=== PATIENT | male | born 1975 | race Asian ===

== ENCOUNTER 2019-10-14 10:35 | Outpatient (CLI) | payer OTHER ==
--- NOTE | 2019-10-14 11:34 | SLEEP CARE CONSULTATION ---
Information from patient questionnaire entered by Giulia Rolon. I have reviewed and concur with the information entered by Giuila Rolon. This document represents the service I personally performed and the decisions made by me, Pallavi Garcia ARNP. History of Present Illness Service Date and Time: 10/14/2019 1035 Reason for Visit: New patient Chief Complaint: reports: Unrefreshed sleep, Snoring, Observed pauses in breathing, Fatigue, Other (headaches) Duration of Symptoms: 5 years Usual bedtime: 2100 Time it takes to fall asleep: 30 minutes Snores at night: Yes Observed to quit breathing while asleep: Yes Sleeps alone due to snoring: No (sometimes) Number of times waking at night: 3-4 Reasons for waking at night: reports: Snoring, Bathroom Toss, Turn, or Twitch while sleeping: Yes (toss and turn) Recalls having dreams: Yes Usually gets out of bed at: 0630 Feels refreshed in the morning: No Morning headache: Yes Sleepy or fatigued during the day: Yes Ever fallen asleep while driving: Yes Takes day naps: Yes Dreams during day naps: No Prior sleep studies: No Additional HPI information: Patient did try to have study done before but was unable to finish process and get sleep study due to transfer. He has had his and other bunk mates tell him he snores loudly, gasps in his sleep and stops breathing occasionally when sleeping. He complains today of unrestful sleep despite sleeping 8+ hours nightly, gets up 2-3 times a night and has difficulty with restless leg movements when trying to fall asleep or when sitting in his recliner. He also reports getting headaches when he does not sleep well that resolve in 1-2 hours in the morning usually. - Parasomnia Symptoms Ever been unable to move upon waking from sleep: No Walks in sleep: No Talks in sleep: Yes Ever acted out dreams in sleep: Yes Ever felt weak in the knees when startled or emotional: Yes Bothered by creepy, crawly, restless sensations in legs: Yes (always moving legs in bed or in recliner) Problems with memory or concentration: Yes (hard to remember what he was doing, take second to remember) Subjective Initial [place] Sleepiness Scale score: 18 Past Medical History Past Medical History: reports: Hypertension. denies: Congestive Heart Failure, Diabetes, Stroke, Coronary Heart Disease, Gout, Arrythmia, Anemia, Anxiety, Impotence, Asthma, Depression, Mood disorder, GERD Social History The patient's occupation is active . Patient is and lives in [place]. Have you smoked in the past 12 months: No Alcohol use: No Caffeine use: Yes Caffeine amount and frequency: 1 coffee/day Family History Family history of sleep disordered breathing: Yes Family Hx Sleep Apnea: Father: Snoring, Sibling: Snoring Allergies and Home Medications Drug allergies reviewed: Yes (NKDA) Home medication list reviewed: Yes (none, OTC Advil as needed) Review of Systems Cardiovascular: reports: high blood pressure. denies: palpitations, chest pain, irregular heart rate or pulse, leg or foot swelling, have to sleep sitting up Respiratory: denies: shortness of breath, wheeze, chronic cough Gastrointestinal: denies: heartburn, difficulty swallowing, abdominal pain Urinary: denies: incontinence, frequency, urgency, impotence, other Neurological: reports: headaches (wake up throbbing PATTERSON, last 1-2 hours). denies: head trauma, disorientation, speech dysfunction, gait or balance problems Psychiatric: denies: Attention Deficit Hyperactivity, anxiety, depression, mood disorder Ear/Nose/Throat: reports: nasal congestion, dry mouth/throat (mouth and throat in mornings, resolves with water intake), wisdom teeth removed. denies: sinus problems, nose bleeds, hoarseness, injury to nose, tonsillectomy Endocrine: denies: thyroid disease, history of goiter, sluggishness, too hot or cold, excessive thirst, increased appetite, increased urination, unexplained weakness Musculoskeletal: reports: neck pain, back pain. denies: joint pain, joint swelling, muscle pain or cramping Immunologic: reports: allergies to food or environment (*environment, seasonal). denies: sneezing, rash, itching Physical Exam Heart Rate: 83 O2 Saturation: 98 Height: 5 ft 9 in Weight: 220 lb Body Mass Index: 32.5 BMI Classification: Obese Neck circumference: 18 (inches) Nasal exam: negative: erythema, excoriation, scabs, blood tinged nasal secretions, other HEENT: No craniofacial malformation Nostrils: patent to airflow Turbinates: normal Septum: midline Mouth and throat: normal Soft palate: normal Hard palate: normal Uvula: long Uvula visualization: 50% Mallampati Class II Tongue: normal in size Tonsils: 1+ Chin and jaw: normal size and position Neck: normal w/o lymphadenopathy or thyromegaly Heart: regular rate and rhythm Lungs: clear bilaterally Impression and Plan 1. Suspected Obstructive Sleep Apnea-Hypopnea Syndrome, as suggested by a history of loud and irregular snoring, observed cessation of breath while asleep by multiple people, gasping in sleep, morning headache, frequent awakening during the night, unrefreshed sleep, cognitive impairment, and excessive daytime sleepiness. Obesity are common predisposing factors for obstructive sleep apnea- hypopnea syndrome. I recommend proceeding to polysomnography to confirm the diagnosis and to assess severity. If the patient has significant sleep disordered breathing, a manual CPAP titration study will also be performed to find the optimal treatment pressure. I informed the patient of what the sleep studies involve and after some discussion, obtained agreement to proceed. The pathophysiology of obstructive sleep apnea-hypopnea syndrome was discussed with the patient and health risks of cardiovascular and cerebrovascular disease if not treated. AASM brochure for obstructive sleep apnea-hypopnea syndrome given and reviewed. 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 Patient agreed to plan. * Schedule polysomnography and return in 1-2 weeks after the study to discuss result and initiate therapy. * Avoid long distance driving or driving when feeling sleepy. * Avoid alcohol, sedative and muscle relaxant around bedtime. * Attempt to lose weight. * Review instructions provided by trained office staff on how to prepare for the sleep study. * Return for follow-up after sleep study completed. Visit Type: In Office Time Spent with Patient (minutes): 30 Provider Statement: I spent 100% of the Face to Face Visit with the patient with greater than 50% spent counseling the patient and coordination of care.
== END 2019-10-14 10:36 | disposition home or self-care (01) ==
LOC: SC 10:35
PROVIDERS: ATTEND Nurse Practitioner Family
DX: R06.83 Snoring (principal); R06.81 Apnea, not elsewhere classified; R51 Headache; G47.8 Other sleep disorders; R41.89 Other symptoms and signs involving cognitive functions and awareness; G47.10 Hypersomnia, unspecified; E66.9 Obesity, unspecified; Z68.32 Body mass index [BMI] 32.0-32.9, adult
CPT/HCPCS: 99204; 99212

== ENCOUNTER 2019-11-13 14:48 | Outpatient (CLI) | payer OTHER ==
--- NOTE | 2019-11-13 15:20 | SLEEP CARE CONSULTATION ---
Information from patient questionnaire entered by Naina Carter. I have reviewed and concur with the information entered by Naina Carter. This document represents the service I personally performed and the decisions made by , Pallavi Garcia ARNP. History of Present Illness Service Date and Time: 11/13/2019 1448 Initial [place] Sleepiness Scale score: 18 (in 2020) Current [place] Sleepiness Scale score: 18 Additional HPI information: MINOR DUGGAN returns for follow up and results of the recently performed polysomnography. I explained the pathophysiology behind obstructive sleep apnea. We then spent quite a bit of time discussing different treatment options. For mild obstructive sleep apnea, surgery and oral appliance are alternatives to nasal CPAP therapy but in moderate or severe cases, nasal CPAP is the most effective and reliable treatment. Because apnea is primarily in supine position, then positional management therapy could be effective. Methods discussed such as positioning with pillows, using a T-shirt with tennis balls in the back, and shown commercial products that have a pillow format on back to prevent supine sleep. I reviewed the impact of weight changes on sleep apnea and strongly recommended losing weight. After some discussion, the patient opted to go with the nasal CPAP therapy. Nasal autoCPAP set at [id number] will be ordered with rationale explained. A manual titration study will be ordered if unable to find optimal pressure with office adjustments. I explained how CPAP machine works with sample devices [employer]pir[employer]ulexs Dreamstation and [employer] [id number] and what to expect when using the machine. Using CPAP every night in order to get used to it was emphasized. Patient advised to put CPAP mask on before getting into bed so as not to fall asleep without CPAP. To assist acclimation to CPAP use, it could also be used for a short time during day while reading or watching TV. The patient was instructed to call the CPAP supplier to discuss any mechanical problem that may occur. If the mask given is uncomfortable or is difficult to keep on through the night even with adjustment, contact the CPAP supplier as many will replace with another mask style if notified before 30 days. If snoring or perceives is not getting enough air or too much air from the machine, notify this office. [facility] patient education PAP tips reviewed and given to patient. Patient counseled not drink alcohol less than 4 hours before bedtime as it can increase snoring and apnea. Patient was cautioned about risks of drowsy driving until sleepiness symptoms resolve. Sleep Study - Results Type of Sleep Study: Polysomnography Polysomnography/Home Sleep Study results: IMPRESSION: The quality of the study is good. The patient had slightly reduced sleep efficiency due to a prolonged awakening in the middle of the night. The sleep architecture was abnormal for sleep fragmentation and reduced amount of time spent in REM and slow wave sleep (N3). Respiratory monitoring showed severe obstructive sleep apnea-hypopnea (AHI = 45.8) associated with frequent arousals, oxyhemoglobin desaturation and moderate hypoxia (billie oxygen saturation of 69%). Baseline oxygen saturation was normal. The respiratory events occurred more frequently during supine sleep (supine AHI = 78.5; non-supine = 25.16). Snore was loud in intensity. There was no significant periodic leg movement of sleep. Cardiac rhythm was normal sinus rhythm without significant arrhythmia. No abnormal behavior (parasomnia) observed during the night. Allergies and Home Medications Drug allergies reviewed: Yes (NKDA) Home medication list reviewed: Yes (no changes) Review of Systems Review of systems same as previous: Yes (no changes) Physical Exam Heart Rate: 83 O2 Saturation: 98 Height: 5 ft 9 in Weight: 225 lb 6.4 oz Body Mass Index: 33.3 BMI Classification: Obese Impression and Plan 1. Obstructive Sleep Apnea-Hypopnea Syndrome, 45.8, with lowest oxygen saturation of 69%, is supine AHI was 78.5 and non-supine was 25.16. Obviously this is the cause of the patients symptoms of unrefreshed sleep, and excessive daytime sleepiness. Positive pressure therapy could benefit hypertension. As mentioned above, the patient will be started on nasal autoCPAP therapy with pressure set at 4-15 cmH2O. A manual titration study will be completed if unable to find optimal treatment pressure with office adjustments. Compliance guidelines also reviewed. A copy of compliance guidelines will be given for reference at check out. Because the apnea is more severe supine, I instructed to avoid sleeping supine using pillow positioning until able to start CPAP use. Nasal autoCPAP therapy, pressure at 4-15 cm H2O. Attempt to lose weight. Avoid alcohol consumption near bedtime. Avoid supine sleep until using CPAP. The patient is again cautioned about driving until sleepiness completely resolves on CPAP therapy. Return one month after CPAP obtained. I will assess response to therapy and compliance at that time. Visit Type: In Office Time Spent with Patient (minutes): 19 Provider Statement: I spent 100% of the Face to Face Visit with the patient with greater than 50% spent counseling the patient and coordination of care.
== END 2019-11-13 14:49 | disposition home or self-care (01) ==
LOC: SC 14:48
PROVIDERS: ATTEND Nurse Practitioner Family
DX: G47.33 Obstructive sleep apnea (adult) (pediatric) (principal); E66.9 Obesity, unspecified; Z68.33 Body mass index [BMI] 33.0-33.9, adult
CPT/HCPCS: 99212; 99213

== ENCOUNTER 2020-01-06 09:44 | Outpatient (CLI) | payer OTHER ==
--- NOTE | 2020-01-06 10:20 | SLEEP CARE CONSULTATION ---
Information from patient questionnaire entered by Naina Carter. I have reviewed and concur with the information entered by Naina Carter. This document represents the service I personally performed and the decisions made by , Pallavi Garcia ARNP. History of Present Illness Service Date and Time: 01/06/2020 0944 Previous diagnosis: Severe, Obstructive Sleep Apnea-Hypopnea Syndrome AHI: 45.8 (in 2019) Reason for follow up: first compliance Equipment type: CPAP Equipment obtained from: [facility] (not supplies yet, encouraged to reach out to them) Mask style: Full face Backup mask available: Yes (second mask) Last cushion change: no change yet Prior sleep studies: Yes Year and Where: 2019 - [facility] Type of Sleep Study: Polysomnography HPI additional information: MINOR DUGGAN was diagnosed to have mild, AHI 45.8, obstructive sleep apnea- hypopnea syndrome and returned today for CPAP therapy first compliance follow- up. CPAP Compliance Data - Data Reviewed with Patient Average duration of nightly device use: 7.75 Compliance rate %: 96.7 Current pressure setting (cmH2O): 10-15 Humidity settin Heated hose settin Average residual AHI: 8.6 Central apnea: 1.9 Obstructive apnea: 3.5 Average large leak: 0 Subjective Missed days of use due to: reports: other (Duty/work) Patient concerns: reports: aerophagia (little bit, improving), mask leak noise (readjusting mask and straps helps; using leak test), dry mouth, nose, throat (dry mouth). denies: mask discomfort, air blowing in eyes, condensation in mask/hose, nasal congestion, epistaxis, other Observed to snore while using device: No Current pressure setting perceived as: too high (at first; using ramp feature helps) On therapy, patient: reports: sleeping better, awakening more refreshed, being more awake and alert during the day, more rested overall. denies: drowsiness while driving Initial [place] Sleepiness Scale score: 18 (in 2019) Current [place] Sleepiness Scale score: 19 Allergies and Home Medications Drug allergies reviewed: Yes (NKDA) Home medication list reviewed: Yes (no changes) Review of Systems Review of systems same as previous: Yes (no changes) Physical Exam Heart Rate: 74 O2 Saturation: 96 Height: 5 ft 9 in Weight: 222 lb Body Mass Index: 32.8 BMI Classification: Obese Impression and Plan 1. Obstructive Sleep Apnea-Hypopnea Syndrome, severe, with good treatment compliance and fair apnea control, but has elevated residual AHI. On CPAP th erapy, there is improved sleep quality and feels more rested overall. He has had some dry mouth with use of CPAP and has had some mask leak noises at night. Oral dryness can be reduced by adjusting humidity setting higher or heated hose lower or by adjusting both settings. I explained to patient how to adjust this setting on his machine and he can also refer to his machine instructions. Oral dryness can also be reduced by reducing mask leaks. He has also had some mild aerophagia that he states resolves quickly, is improving overall and is not uncomfortable. He has felt like the pressure is a little high at first, but uses the ramp feature and this makes it possible to get used to pressure as it builds while going to sleep. It just feels high when he wakes up or when it is at the starting pressure. His residual AHI is still a little elevated but he has had great improvement overall. I will adjust his pressure to 12-16 cm H2O. He was advised to continue use of the ramp feature on his machine to help with beginning pressure feeling too high. He was also encouraged to call if he starts getting more aerophagia that becomes much worse or uncomfortable to let me know so we can adjust his pressure if needed. He is to follow up on pressure change and 2nd compliance in 1-2 months for re-evaluation. Patient's apnea severity and rationale for treatment to reduce apnea, improve sleep quality and reduce cardiovascular and cerebrovascular events was reviewed. I also reviewed the benefit of consistent device use of CPAP for his hypertension. * Change autoCPAP pressure to 12-16 cmH2O * Notify me if snoring with mask or feeling that the pressure is too much or too little * Attempt to lose weight * Call this office if any problems using CPAP * Return for follow up in 1-2 months, or sooner if concerns arise Counseling Topics: Spare mask, Weight loss health impact Visit Type: In Office Time Spent with Patient (minutes): 20 Provider Statement: I spent 100% of the Face to Face Visit with the patient with greater than 50% spent counseling the patient and coordination of care.
== END 2020-01-06 09:45 | disposition home or self-care (01) ==
LOC: SC 09:44
PROVIDERS: ATTEND Nurse Practitioner Family
DX: G47.33 Obstructive sleep apnea (adult) (pediatric) (principal); E66.9 Obesity, unspecified; Z68.32 Body mass index [BMI] 32.0-32.9, adult
CPT/HCPCS: 99212

== ENCOUNTER 2020-02-11 14:10 | Outpatient (CLI) | payer OTHER ==
--- NOTE | 2020-02-11 14:44 | SLEEP CARE CONSULTATION ---
Information from patient questionnaire entered by Aries Buckley. I have reviewed and concur with the information entered by Aries Buckley. This document represents the service I personally performed and the decisions made by me, Pallavi Garcia ARNP. History of Present Illness Service Date and Time: 02/11/2020 1410 Previous diagnosis: Severe, Obstructive Sleep Apnea-Hypopnea Syndrome AHI: 45.8 Equipment type: CPAP Equipment obtained from: [facility] (got 1st shipment so far) Mask style: Full face Backup mask available: Yes (other mask) Last cushion change: 1 month ago Prior sleep studies: Yes Year and Where: 2019 - [facility] Type of Sleep Study: Polysomnography HPI additional information: MINOR DUGGAN was diagnosed to have severe, AHI 45.8, obstructive sleep apnea- hypopnea syndrome and returned today for CPAP therapy one month pressure change follow-up. Sleep Study - Results Type of Sleep Study: Polysomnography Prior sleep studies: Yes Year and Where: 2019 - [facility] CPAP Compliance Data - Data Reviewed with Patient Average duration of nightly device use: 7 h Compliance rate %: 93.3 Current pressure setting (cmH2O): 12-16 Humidity settin Heated hose settin Average residual AHI: 5.2 Average large leak: 0 sec Subjective Missed days of use due to: reports: other (duty day) Patient concerns: reports: mask leak noise (a little in middle of night, doesn't wake him up), dry mouth, nose, throat (occasional morning dry mouth). denies: aerophagia, mask discomfort, air blowing in eyes, condensation in mask/hose, nasal congestion, epistaxis, other Observed to snore while using device: No Current pressure setting perceived as: comfortable On therapy, patient: reports: sleeping better, awakening more refreshed, being more awake and alert during the day, more rested overall. denies: drowsiness while driving Initial [place] Sleepiness Scale score: 18 (in 2019) Current [place] Sleepiness Scale score: 18 Allergies and Home Medications Drug allergies reviewed: Yes (NKDA) Home medication list reviewed: Yes (no changes) Review of Systems Review of systems same as previous: Yes (no changes) Physical Exam Heart Rate: 65 O2 Saturation: 97 Height: 5 ft 9 in Weight: 222 lb Body Mass Index: 32.8 BMI Classification: Obese Impression and Plan 1. Obstructive Sleep Apnea-Hypopnea Syndrome, severe, with good treatment compliance and fair apnea control with slightly elevated residual AHI. On CPAP therapy, the patient has better sleep quality and is more rested overall. He has had some occasional oral dryness but has not known that he could adjust the humidity setting. Oral dryness can be reduced by adjusting humidity setting higher or heated hose lower or by adjusting both settings. Oral instructions given on how to change humidity and heated hose settings with rationale exp laining why to change. I will adjust his pressure to 14-16 cm H2O to try to decrease elevated residual AHI and have him followup in 1-2 months. Patient's apnea severity and rationale for treatment to reduce apnea, improve sleep quality and reduce cardiovascular and cerebrovascular events was reviewed. I also reviewed the benefit of consistent device use of CPAP for hypertension. * Change autoCPAP pressure to 14-16 cmH2O * Notify me if snoring with mask or feeling that the pressure is too much or too little * Attempt to lose weight * Call this office if any problems using CPAP * Return for follow up in 1-2 months, or sooner if concerns arise Counseling Topics: Spare mask, Weight loss health impact Visit Type: In Office Time Spent with Patient (minutes): 17 Provider Statement: I spent 100% of the Face to Face Visit with the patient with greater than 50% spent counseling the patient and coordination of care.
== END 2020-02-11 14:11 | disposition home or self-care (01) ==
LOC: SC 14:10
PROVIDERS: ATTEND Nurse Practitioner Family
DX: G47.33 Obstructive sleep apnea (adult) (pediatric) (principal); E66.9 Obesity, unspecified; Z68.32 Body mass index [BMI] 32.0-32.9, adult
CPT/HCPCS: 99212; 99213

== ENCOUNTER 2020-05-05 14:30 | Outpatient (CLI) | payer OTHER ==
--- NOTE | 2020-05-05 14:54 | SLEEP CARE CONSULTATION ---
Information from patient questionnaire entered by Aries Buckley. I have reviewed and concur with the information entered by Aries Buckley. This document represents the service I personally performed and the decisions made by , Pallavi Garcia ARNP. History of Present Illness Service Date and Time: 05/05/2020 1430 Previous diagnosis: Severe, Obstructive Sleep Apnea-Hypopnea Syndrome AHI: 45.8 Reason for follow up: other (2-month followup - pressure change) Equipment type: CPAP Equipment obtained from: [employer] (getting supplies as needed) Mask style: Full face Backup mask available: Yes (other mask) Last cushion change: 2 weeks Prior sleep studies: Yes Year and Where: 2019 - [facility] Type of Sleep Study: Polysomnography HPI additional information: MINOR DUGGAN was diagnosed to have severe, AHI 45.8, obstructive sleep apnea- hypopnea syndrome and returned today for CPAP therapy 2 month pressure change follow-up. CPAP Compliance Data - Data Reviewed with Patient Average duration of nightly device use: 7 h 25 min Compliance rate %: 93.3 Current pressure setting (cmH2O): 14-16 Humidity settin Average residual AHI: 5.6 Average large leak: 21 sec Subjective Missed days of use due to: reports: other (Work) Patient concerns: reports: dry mouth, nose, throat. denies: aerophagia, mask discomfort, air blowing in eyes, mask leak noise, condensation in mask/hose, nasal congestion, epistaxis, other Observed to snore while using device: No Current pressure setting perceived as: comfortable On therapy, patient: reports: sleeping better, awakening more refreshed, being more awake and alert during the day, more rested overall. denies: drowsiness while driving Initial [place] Sleepiness Scale score: 18 (in 2019) Current [place] Sleepiness Scale score: 11 Allergies and Home Medications Home medication list reviewed: Yes (no changes) Review of Systems Review of systems same as previous: Yes (no changes) Physical Exam Heart Rate: 66 O2 Saturation: 98 Height: 5 ft 9 in Weight: 221 lb Body Mass Index: 32.6 BMI Classification: Obese Impression and Plan 1. Obstructive Sleep Apnea-Hypopnea Syndrome, severe, with good treatment compliance and fair apnea control with mild elevated residual AHI. On CPAP therapy, the patient has better sleep quality and is more rested overall. The patients pressure will be changed to autoCPAP 15-17 cmH20 For elevation of residual AHI. Patient advised to contact me if pressure change is uncomfortable so that it can be adjusted. Goals for apnea control discussed. He is getting a little bit of dry mouth. His humidifier is set at 3 and I advised him to increase to 4 for the dryness. Oral dryness can be reduced by adjusting humidity setting higher or heated hose lower or by adjusting both settings. He voiced understanding and agreement with plan. Patient's apnea severity and rationale for treatment to reduce apnea, improve sleep quality and reduce cardiovascular and cerebrovascular events was reviewed. I also reviewed the benefit of consistent device use of CPAP for hypertension. * Change autoCPAP pressure to 15-17 cmH2O * Notify me if snoring with mask or feeling that the pressure is too much or too little * Attempt to lose weight * Call this office if any problems using CPAP * Return for follow up in 1-2 months, or sooner if concerns arise Counseling Topics: Spare mask, Weight loss health impact Visit Type: In Office Time Spent with Patient (minutes): 17 Provider Statement: I spent 100% of the Face to Face Visit with the patient with greater than 50% spent counseling the patient and coordination of care.
== END 2020-05-05 14:31 | disposition home or self-care (01) ==
LOC: SC 14:30
PROVIDERS: ATTEND Nurse Practitioner Family
DX: G47.33 Obstructive sleep apnea (adult) (pediatric) (principal); E66.9 Obesity, unspecified; Z68.32 Body mass index [BMI] 32.0-32.9, adult
CPT/HCPCS: 99212

== ENCOUNTER 2020-07-01 14:23 | Outpatient (CLI) | payer OTHER ==
--- NOTE | 2020-07-01 14:49 | SLEEP CARE CONSULTATION ---
Information from patient questionnaire entered by Aries Buckley. I have reviewed and concur with the information entered by Aries Buckley. This document represents the service I personally performed and the decisions made by me, Pallavi Garcia ARNP. History of Present Illness Service Date and Time: 07/01/2020 1423 Previous diagnosis: Severe, Obstructive Sleep Apnea-Hypopnea Syndrome AHI: 45.8 Reason for follow up: other (2-month followup - pressure change) Equipment type: CPAP Equipment obtained from: [employer] (getting supplies as needed) Mask style: Full face Backup mask available: Yes (old mask) Last cushion change: 2 weeks ago Prior sleep studies: Yes Year and Where: 2019 - [facility] Type of Sleep Study: Polysomnography HPI additional information: MINOR DUGGAN was diagnosed to have severe, AHI 45.8, obstructive sleep apnea- hypopnea syndrome and returned today for CPAP therapy two month pressure change follow-up. CPAP Compliance Data - Data Reviewed with Patient Average duration of nightly device use: 7 h 24 min Compliance rate %: 96.7 Current pressure setting (cmH2O): 15-17 Humidity settin Average residual AHI: 5.5 Average large leak: 48 sec Subjective Missed days of use due to: reports: other (work/duty) Patient concerns: denies: aerophagia, mask discomfort, air blowing in eyes, mask leak noise, condensation in mask/hose, nasal congestion, dry mouth, nose, throat, epistaxis, other Observed to snore while using device: No Current pressure setting perceived as: comfortable (except for one awakening where the pressure feels too high) On therapy, patient: reports: sleeping better, awakening more refreshed, being more awake and alert during the day, more rested overall. denies: drowsiness while driving Initial [place] Sleepiness Scale score: 18 (in 2020) Current [place] Sleepiness Scale score: 16 Allergies and Home Medications Home medication list reviewed: Yes Allergy and home medication list: Lisinopril 20 mg daily Atorvastatin 40 mg daily Review of Systems Review of systems same as previous: No (hypertension, high cholesterol) Physical Exam Heart Rate: 74 O2 Saturation: 98 Height: 5 ft 9 in Weight: 218 lb Body Mass Index: 32.1 BMI Classification: Obese Impression and Plan 1. Obstructive Sleep Apnea-Hypopnea Syndrome, severe, with good treatment compliance and fair apnea control with minimally elevated residual AHI. On CPAP therapy, the patient has better sleep quality and is more rested overall. He had better control with a residual AHI with his setting at 12-16 cmH2O. The patients pressure will be changed to autoCPAP 13-16 cmH20 for elevation of residual AHI and we will follow up with him in 3 months. Patient advised to contact me if pressure change is uncomfortable so that it can be adjusted. Goals for apnea control discussed. Patient's apnea severity and rationale for treatment to reduce apnea, improve sleep quality and reduce cardiovascular and cerebrovascular events was reviewed. I also reviewed the benefit of consistent device use of CPAP for hypertension. * Change auto CPAP pressure to 13-16 cmH2O * Notify me if snoring with mask or feeling that the pressure is too much or too little * Attempt to lose weight * Call this office if any problems using CPAP * Return for follow up in 3 months, or sooner if concerns arise Counseling Topics: Spare mask, Weight loss health impact Visit Type: In Office Time Spent with Patient (minutes): 15 Provider Statement: I spent 100% of the Face to Face Visit with the patient with greater than 50% spent counseling the patient and coordination of care.
== END 2020-07-01 14:24 | disposition home or self-care (01) ==
LOC: SC 14:23
PROVIDERS: ATTEND Nurse Practitioner Family
DX: G47.33 Obstructive sleep apnea (adult) (pediatric) (principal); E66.9 Obesity, unspecified; Z68.32 Body mass index [BMI] 32.0-32.9, adult
CPT/HCPCS: 99212

== ENCOUNTER 2020-09-02 12:50 | Outpatient (CLI) | payer OTHER ==
--- NOTE | 2020-09-02 13:14 | SLEEP CARE CONSULTATION ---
Information from patient questionnaire entered by Naina Carter. I have reviewed and concur with the information entered by Naina Carter. This document represents the service I personally performed and the decisions made by , Pallavi Garcia ARNP. History of Present Illness Service Date and Time: 09/02/2020 1250 Previous diagnosis: Severe, Obstructive Sleep Apnea-Hypopnea Syndrome AHI: 45.8 (in 2019) Reason for follow up: other (2 month with pressure change) Equipment type: CPAP Equipment obtained from: [employer] (getting supplies as needed) Mask style: Full face Backup mask available: Yes (old mask) Last cushion change: last month Prior sleep studies: Yes Year and Where: 2019 - [facility] Type of Sleep Study: Polysomnography HPI additional information: MINOR DUGGAN was diagnosed to have severe, AHI 45.8, obstructive sleep apnea- hypopnea syndrome and returned today for CPAP therapy three month follow-up. CPAP Compliance Data - Data Reviewed with Patient Average duration of nightly device use: 7 hr 55 min Compliance rate %: 98.3 (60 days) Current pressure setting (cmH2O): 13-16 Humidity settin Heated hose settin Average residual AHI: 4.3 Average large leak: 0 Subjective Patient concerns: denies: aerophagia, mask discomfort, air blowing in eyes, mask leak noise, condensation in mask/hose, nasal congestion, dry mouth, nose, throat, epistaxis, other Observed to snore while using device: No Current pressure setting perceived as: comfortable On therapy, patient: reports: sleeping better, awakening more refreshed, being more awake and alert during the day, more rested overall. denies: drowsiness while driving Initial [place] Sleepiness Scale score: 18 (in 2019) Current [place] Sleepiness Scale score: 15 Allergies and Home Medications Home medication list reviewed: Yes (no changes) Review of Systems Review of systems same as previous: Yes (no changes) Physical Exam Heart Rate: 86 O2 Saturation: 95 Height: 5 ft 9 in Weight: 221 lb Body Mass Index: 32.6 BMI Classification: Obese Impression and Plan 1. Obstructive Sleep Apnea-Hypopnea Syndrome, severe, with good treatment compliance and good apnea control. On CPAP therapy, the patient has better sleep quality and is more rested overall. He is very satisfied with his current pressure and treatment. He would like to try a nasal mask because he had been talking to a friend who uses one and really likes his. He thinks it may reduce mask dislodgment when turning onto side. I will write for a mask refitting to try the nasal mask since he currently uses a full face. He is doing really well, very compliant and had good apnea control, I will have him follow up in 6 months. He voiced understanding and agreement with plan. Patient's apnea severity and rationale for treatment to reduce apnea, improve sleep quality and reduce cardiovascular and cerebrovascular events was reviewed. I also reviewed the benefit of consistent device use of CPAP for hypertension. * Continue auto CPAP pressure at 13-16 cmH2O * Notify me if snoring with mask or feeling that the pressure is too much or too little * Attempt to lose weight * Call this office if any problems using CPAP * Return for follow up in 6 months, or sooner if concerns arise Counseling Topics: Spare mask, Weight loss health impact Visit Type: In Office Time Spent with Patient (minutes): 13 Provider Statement: I spent 100% of the Face to Face Visit with the patient with greater than 50% spent counseling the patient and coordination of care.
== END 2020-09-02 12:51 | disposition home or self-care (01) ==
LOC: SC 12:50
PROVIDERS: ATTEND Nurse Practitioner Family
DX: G47.33 Obstructive sleep apnea (adult) (pediatric) (principal); E66.9 Obesity, unspecified; Z68.32 Body mass index [BMI] 32.0-32.9, adult
CPT/HCPCS: 99212

== ENCOUNTER 2021-07-13 16:32 | Outpatient (CLI) | payer OTHER ==
[2021-07-13 17:06] VITALS: BP 137/63
--- NOTE | 2021-07-13 17:06 | SLEEP CARE CONSULTATION ---
Information from patient questionnaire entered by Benjamín Enciso MA. I have reviewed and concur with the information entered by Benjamín Enciso MA. This document represents the service I personally performed and the decisions made by , Pallavi Garcia ARNP. History of Present Illness Service Date and Time: 07/13/2021 1632 Previous diagnosis: Severe, Obstructive Sleep Apnea-Hypopnea Syndrome AHI: 45.8 (in 2019) Reason for follow up: other (9 MONTH F/U, DESI, ) Equipment type: CPAP Equipment obtained from: [employer] (getting supplies as needed) Mask style: Full face Backup mask available: Yes (old mask) Last cushion change: 1-2 months Prior sleep studies: Yes Year and Where: 2019 - [facility] Type of Sleep Study: Polysomnography HPI additional information: MINOR DUGGAN was diagnosed to have severe, AHI 45.8, obstructive sleep apnea- hypopnea syndrome and returned today for CPAP therapy 9 month follow-up. Sleep Study - Results Type of Sleep Study: Polysomnography Prior sleep studies: Yes Year and Where: 2019 - [facility] CPAP Compliance Data - Data Reviewed with Patient Average duration of nightly device use: 7 HOURS 35 MINUTES Compliance rate %: 96.7 Current pressure setting (cmH2O): 13-16 (avg 16.0) Humidity settin Heated hose setting: OFF Average residual AHI: 6.9 Average large leak: 0 Subjective Patient concerns: reports: mask discomfort, dry mouth, nose, throat (sometimes, may be oral venting). denies: aerophagia, air blowing in eyes, mask leak noise, condensation in mask/hose, nasal congestion, epistaxis, other Observed to snore while using device: Yes Current pressure setting perceived as: too low (maybe) On therapy, patient: reports: sleeping better, awakening more refreshed, being more awake and alert during the day, more rested overall. denies: drowsiness while driving Initial [place] Sleepiness Scale score: 18 (in 2019) Current [place] Sleepiness Scale score: 16 Allergies and Home Medications Home medication list reviewed: Yes (no changes) Review of Systems Review of systems same as previous: Yes (no changes) Physical Exam Vital signs obtained and entered by: NEDA TALAMANTES Blood Pressure: 137/63 Cuff size: wrist Heart Rate: 66 O2 Saturation: 98 (cloth mask) Height: 5 ft 9 in Weight: 210 lb Weight change since last visit: 11 lb loss Body Mass Index: 31.0 BMI Classification: Obese Impression and Plan 1. Obstructive Sleep Apnea-Hypopnea Syndrome, severe, with good treatment compliance and fair apnea control with mild elevation of residual AHI. On CPAP therapy, the patient has better sleep quality and is more rested overall. He has noted that he is having more apnea episodes and may be snoring while using device. The patients pressure will be changed to autoCPAP 15-18 cmH20 for elevation of residual AHI. Patient advised to contact me if pressure change is uncomfortable so that it can be adjusted. Goals for apnea control discussed. Patient's apnea severity and rationale for treatment to reduce apnea, improve sleep quality and reduce cardiovascular and cerebrovascular events was reviewed. I also reviewed the benefit of consistent device use of CPAP for hypertension. 2. Obesity, unspecified. Patient has lost weight. Currently patients BMI is 31.0. Obesity increases the risk of apnea, CPAP pressure requirements and overall health risks especially cardiovascular and diabetes. Thus patient is advised to continue to try to lose weight. Weight loss can be done with reducing portion size, reducing refined foods and balancing content with vegetables, fruit and whole grain foods. In addition, patient encouraged to get regular exercise. The patient's CPAP pressure range should accommodate some weight loss. Symptoms to report for additional pressure adjustment discussed. * Change auto CPAP pressure to 15-18 cmH2O * Notify me if snoring with mask or feeling that the pressure is too much or too little * Continue to try to lose weight * Call this office if any problems using CPAP * Return for follow up in 1 year, or sooner if concerns arise Counseling Topics: Spare mask, Weight loss health impact Visit Type: In Office Time Spent with Patient (minutes): 20 Provider Statement: I spent 100% of the Face to Face Visit with the patient with greater than 50% spent counseling the patient and coordination of care.
== END 2021-07-13 16:33 | disposition home or self-care (01) ==
LOC: SC 16:32
PROVIDERS: ATTEND Nurse Practitioner Family
DX: G47.33 Obstructive sleep apnea (adult) (pediatric) (principal); E66.9 Obesity, unspecified; Z68.31 Body mass index [BMI] 31.0-31.9, adult
CPT/HCPCS: 99212; 99213

== ENCOUNTER 2022-05-08 09:48 | Outpatient (CLI) | payer OTHER ==
--- NOTE | 2022-05-08 15:51 | MRI Report ---
PROCEDURE: LUMBAR SPINE WO INDICATIONS: LOW BACK PAIN TECHNIQUE: Noncontrast sagittal T1 spin echo and T2 fast echo, sagittal STIR, axial T1 and T2 fast spin echo thr ough the lumbar spine. In cases with scoliosis, additional coronal T2 fast spin echo may be performe d. COMPARISON: None. FINDINGS: Image quality: Excellent. Alignment and Curvature: No plain films are available for comparison. Thus, for numbering purposes, 5 lumbar type vertebral bodies will be presumed for the current report. This should be confirmed with plain film correlation prior to any lumbar spinal intervention. There is loss of normal lumbar lordos is. Roughly 2 mm of retrolisthesis of L2 on L3. Bone Marrow: Marrow is of normal overall signal. No acute vertebral body compression fractures. Mi nimal reactive signal within the endplates of the lumbar and lower thoracic spine. Spinal Cord: Conus medullaris terminates at the mid L1 level. Visualized cord demonstrates normal s ignal and size. Paraspinous Soft Tissues: No paravertebral masses. T12-L1: Normal in appearance. L1-L2: Normal in appearance. L2-L3: Mild disc desiccation and diffuse disc bulge. Mild facet and ligament flavum hypertrophy. M ild upper lipomatosis. Mild canal stenosis. Mild bilateral foraminal stenosis. L3-L4: Mild disc desiccation and diffuse disc bulge with superimposed right posterolateral protrusi on. Mild facet and ligament flavum hypertrophy. Mild epidural lipomatosis. Mild canal stenosis. Moder ate right and mild to moderate left foraminal stenosis. L4-L5: Mild disc desiccation and diffuse disc bulge. Mild bilateral facet hypertrophy. Mild canal s tenosis. Mild bilateral foraminal stenosis. L5-S1: Mild bilateral facet hypertrophy. No significant canal, nor foraminal stenosis IMPRESSION: 1. Multilevel degenerative disc and facet disease, in addition to epidural lipomatosis and ligamentum flavum hypertrophy. 2. Mild multilevel canal stenoses. 3. Multilevel foraminal stenoses, worst at L3-L4 on the right where there is moderate foraminal steno sis. 4. Five lumbar type vertebral bodies were presumed for the purposes of the current report. Correlati on with plainfilms for numbering purposes is recommended prior to any lumbar spinal intervention. Reviewed by: Donya Gregory MD on 05/08/2022 3:50 PM PST Approved by: Donya Gregory MD on 05/08/2022 3:50 PM PST Station ID: [id number]
== END 2022-05-08 09:49 | disposition home or self-care (01) ==
LOC: DI 09:48
PROVIDERS: ATTEND Internal Medicine
DX: M51.36 Other intervertebral disc degeneration, lumbar region (principal); M48.061 Spinal stenosis, lumbar region without neurogenic claudication; M47.816 Spondylosis without myelopathy or radiculopathy, lumbar region; M47.817 Spondylosis without myelopathy or radiculopathy, lumbosacral region